=== PATIENT | male | born 1980 | race Two or more races ===

== ENCOUNTER 2023-09-21 23:56 | Emergency (ER) | payer SELFPAY ==
[~2023-09-21] VITALS: Ht 177.8 cm; Wt 95.5 kg
[2023-09-22] MEDS: ONDANSETRON ODT 4 MG TAB PO ONE (02:00)
[2023-09-22 02:35] VITALS: TEMP 100.2; O2SAT 97
[2023-09-22] MEDS: MORPHINE SULFATE INJ 2 MG/ml SYRG IM ONE (02:46)
[2023-09-22 03:15] VITALS: BP 120/68; PULSE 78; RESP 16
[2023-09-22] MEDS ORDERED: ACE3T PO (05:31)
== END 2023-09-22 05:42 | disposition home or self-care (01) ==
LOC: EDBD 23:56 → ER 09-22 00:01
DX: S42.002A Fracture of unspecified part of left clavicle, initial encounter for closed fracture (principal); S42.112A Displaced fracture of body of scapula, left shoulder, initial encounter for closed fracture; S30.0XXA Contusion of lower back and pelvis, initial encounter; S16.1XXA Strain of muscle, fascia and tendon at neck level, initial encounter; S20.212A Contusion of left front wall of thorax, initial encounter; V43.52XA Car driver injured in collision with other type car in traffic accident, initial encounter; Y93.89 Activity, other specified; Y92.488 Other paved roadways as the place of occurrence of the external cause; Y99.8 Other external cause status
CPT/HCPCS: 36415; 70450; 71101; 71250; 72125; 72220; 73030; 84484; 93005; 96372; 99285; J2270; Q0162